=== PATIENT | female | born 1970 | race Caucasian/White ===

== ENCOUNTER 2024-11-05 02:18 | Emergency (ER) | payer OTHER ==
[~2024-11-05] VITALS: Ht 167.6 cm; Wt 75.0 kg
[2024-11-05 02:25] VITALS: O2SAT 100
[2024-11-05 03:18] LABS: BASOPHILS % 1.3 % (0.0-2.0); EOSINOPHILS % 8.2 % (0.0-5.0); HEMATOCRIT. 34.1 % (36.0-48.0); HEMOGLOBIN. 11.7 g/dL (12.0-16.0); LYMPHOCYTES % 32.1 % (20.0-50.0); MEAN CORPUSCULAR HEMOGLOBIN 32.4 pg (28.0-32.0); MEAN CORPUSCULAR HGB CONC 34.4 g/dL (31.0-37.0); MEAN PLATELET VOLUME 7.4 fl (7.4-10.4); MONOCYTES % 7.1 % (2.0-8.0); NEUTROPHILS % 51.3 % (40.0-76.0); PLATELET 224 x1000/uL (130-400); RED BLOOD CELL COUNT 3.63 mill/uL (4.2-5.4); RED CELL DISTRIBUTION WIDTH 12.2 % (11.6-14.6); WHITE BLOOD COUNT 4.4 x1000/uL (4.5-11.0)
[2024-11-05] MEDS: NITROGLYCERIN 0.4MG TABLET SL SL ONE (03:24)
[2024-11-05 03:31] LABS: D-DIMER < 0.19 mg/L FEU (<0.50); PROTHROMBIN TIME 10.4 sec (9.6-11.0)
[2024-11-05 03:38] LABS: CHLORIDE 105 mEq/L (98-107); POTASSIUM 3.4 mEq/L (3.5-5.1); SODIUM 140 mEq/L (136-145)
[2024-11-05 03:39] LABS: CALCIUM 8.7 mg/dL (8.7-10.4); CARBON DIOXIDE 30 mEq/L (21-32)
[2024-11-05 03:44] LABS: CREATININE 0.9 mg/dL (0.6-1.0); GLUCOSE 97 mg/dL (70-105); UREA NITROGEN BLOOD 16 mg/dL (9-23)
[2024-11-05 03:46] LABS: ALANINE AMINOTRANSFERASE 18 IU/L (10-49); ALBUMIN 4.3 g/dL (3.2-4.8); ASPARTATE AMINOTRANSFERASE 18 IU/L (<34); BILIRUBIN DIRECT < 0.1 mg/dL (<=3.0); BILIRUBIN TOTAL 0.4 mg/dL (0.1-1.0)
[2024-11-05 04:18] LABS: TROPONIN I HIGH SENSITIVITY < 4 ng/L (3.0-34)
[2024-11-05 05:30] VITALS: PULSE 52; TEMP 36.9
[2024-11-05 06:16] VITALS: BP 112/51; RESP 17; O2SAT 96
== END 2024-11-05 06:38 | disposition home or self-care (01) ==
LOC: ER 02:18
DX: R07.89 Other chest pain (principal); Z88.5 Allergy status to narcotic agent; Z79.899 Other long term (current) drug therapy
CPT/HCPCS: 80076; 80048; 83880; 83690; 85025; 85379; 85610; 84484; 36415; 71045; 93005; 99285; Z7610 ×2; A4606